=== PATIENT | female | born 1985 | race Caucasian/White ===

== ENCOUNTER → 2017-02-27 | Outpatient (CLI) | payer OTHER ==
--- NOTE | 2017-02-27 11:22 | REP ---
HISTORY: BRCA 2 Gene with bilateral mastectomy 2015 and fat grafting 12/2016. HISTORY: Left axillary lump. Real-time sonographic evaluation of the left axilla performed in the region of the reported palpable abnormality. Multiple cystic structures are seen in the left axillary region. The largest measures 7 mm in diameter and 9 x 5 x 5 mm. These may represent small areas of fat necrosis. No suspicious masses or adenopathy seen. IMPRESSION: Palpable abnormality in the left axillary region corresponds to multiple small cystic areas as discussed above possibly representing small areas of fat necrosis. No suspicious solid mass or adenopathy. Signed by Kelby Crum MD 02/27/2017 08:08 P
== END ==
LOC: M RAD 09:54
PROVIDERS: ATTEND Family Medicine
DX: R22.9 Localized swelling, mass and lump, unspecified (principal)

== ENCOUNTER → 2019-01-10 | Outpatient (REF) | payer OTHER | LOC: M SFHCLERA 18:51 | PROVIDERS: ATTEND Physician Assistant | DX: R50.9 Fever, unspecified (principal) ==